=== PATIENT | female | born 1975 | race African-American/Black ===

== ENCOUNTER 2019-03-20 14:30 | Emergency (ER) | payer MEDICAID, OTHER ==
[~2019-03-20] VITALS: Ht 167.6 cm; Wt 144.2 kg
[2019-03-20 15:55] VITALS: BP 128/84
[2019-03-20] MEDS ORDERED: METHOCARBAMOL 500 MG TAB PO ONE (16:30)
[2019-03-20] MEDS ORDERED: KETOROLAC TROMETH 60MG/2ML VIAL IM ONE (16:30)
== END 2019-03-20 17:11 | disposition home or self-care (01) ==
LOC: ER 14:35
DX: M54.5 Low back pain (principal); G89.29 Other chronic pain; E66.9 Obesity, unspecified; Z68.43 Body mass index [BMI] 50.0-59.9, adult
CPT/HCPCS: 72100; 96372; 99283; J1885